=== PATIENT | male | born 2000 | race Caucasian/White ===

== ENCOUNTER 2024-08-25 18:32 | Emergency (ER) | payer OTHER ==
[~2024-08-25] VITALS: Ht 190.5 cm; Wt 120.2 kg
[~2024-08-25 18:32] MED LIST: BENADRYL25 MG PO; MOTRIN CHI100 MG/51 PO; PREDNICOT20 MG PO; TESSALON PERLE100 MG PO; ZITHROMAX Z-PA250 MG PO
[2024-08-25] MEDS ORDERED: PROPRANOLOL HCL40 MG PO (18:47)
[2024-08-25] MEDS ORDERED: HYDROXYZINE PAM50 MG PO (18:47)
[2024-08-25] MEDS ORDERED: PRILOSEC20 M1 PO (18:48)
[2024-08-25] MEDS ORDERED: LORazepam 1 MG TAB PO ONE (19:00)
== END 2024-08-25 20:13 | disposition home or self-care (01) ==
LOC: ED 18:32
DX: F41.9 Anxiety disorder, unspecified (principal); R07.89 Other chest pain; M25.522 Pain in left elbow; K21.9 Gastro-esophageal reflux disease without esophagitis; I10 Essential (primary) hypertension; Z88.8 Allergy status to other drugs, medicaments and biological substances